=== PATIENT | female | born 1930 | race Caucasian/White ===

== ENCOUNTER 2016-09-15 13:46 | Emergency (ER) | payer MEDICARE, OTHER ==
[2016-09-15 16:32] LABS: BASOPHIL 0.6 % (0-2); BILIRUBIN NEGATIVE (NEGATIVE); BLOOD NEGATIVE Ery/uL (NEGATIVE); CLARITY CLEAR (CLEAR); COLOR YELLOW (YELLOW); EOSINOPHIL 2.6 % (0-7); GLUCOSE (U) NORMAL (NORMAL); HCT 37.5 % (37.0-47.0); HGB 12.7 g/dl (12.5-16.0); KETONE (U) NEGATIVE (NEGATIVE); LEUKOCYTES NEGATIVE Leu/uL (NEGATIVE); LYMPHOCYTE 19.7 % (15-48); MCHC 33.9 g/dL (32.0-36.0); MCV 88.7 fL (78.0-100.0); MONOCYTE 7.8 % (0-12); NEUTROPHIL 69.3 % (41-80); NITRITE NEGATIVE (NEGATIVE); PLT 213 K/uL (150-400); PROTEIN NEGATIVE (NEGATIVE); RBC 4.23 M/uL (4.20-5.40); RDW 12.1 % (11.5-14.0); UROBILINOGEN 0.2 mg/dL (0.2-1.0); WBC 8.7 K/uL (4.0-10.5)
[2016-09-15 16:47] LABS: CREATININE 1.2 mg/dL (0.5-1.0); POTASSIUM 3.5 mmol/L (3.5-5.1)
== END 2016-09-15 18:17 | disposition home or self-care (01) ==
LOC: FER 13:46
PROVIDERS: Internal Medicine
DX: R42 Dizziness and giddiness (principal); M79.604 Pain in right leg; I10 Essential (primary) hypertension; Z87.42 Personal history of other diseases of the female genital tract
CPT/HCPCS: 36415; 80048; 81003; 85025; 99284